=== PATIENT | female | born 1980 | race Caucasian/White ===

== ENCOUNTER 2019-07-26 04:39 | Emergency (ER) | payer BC ==
[~2019-07-26] VITALS: Ht 170.2 cm; Wt 78.0 kg
--- NOTE | 2019-07-26 04:46 | NUR ---
PT AMBULATORY W/ STABLE GAIT C/O INTERMITTENT CHEST PAIN RADIATING TOWARDS L SHOULDER FOR 2DAYS DESCRIBED BURNING PAIN DENIES NVD, FEVERS NOR CHILLS DENIES RECENT TRAVELS ABLE TO SPEAK CLEAR COMPLETE SENTENCES DENIES RESPIRATORY DISTRESS MONITORED ACCORDINGLY SIDERAILSX2 UP BED AT LOWEST POSITION MD AT BEDSIDE FOR HX AND PHYSICAL
[2019-07-26 05:08] LABS: BASOPHILS % (AUTO) 0.2 % (0.0-2.0); EOSINOPHILS # (AUTO) 0.5 K/uL (0.0-0.7); EOSINOPHILS % (AUTO) 4.8 % (0.0-7.0); HEMATOCRIT 40.5 % (31.2-41.9); HEMOGLOBIN 13.7 g/dL (10.9-14.3); LYMPHOCYTES # (AUTO) 2.9 K/uL (20.0-40.0); LYMPHOCYTES % (AUTO) 30.8 % (20.5-51.5); MEAN CORPUSCULAR HEMOGLOBIN 30.5 uug (24.7-32.8); MEAN CORPUSCULAR HGB CONC 34 g/dL (32.3-35.6); MEAN CORPUSCULAR VOLUME 90.4 fL (75.5-95.3); MONOCYTES # (AUTO) 0.6 K/uL (2.0-10.0); NEUTROPHILS # (AUTO) 5.5 K/uL (1.8-8.9); NEUTROPHILS % (AUTO) 58.2 % (38.5-71.5); PLATELET COUNT (AUTO) 192 K/uL (179-408); RED BLOOD CELL COUNT(AUTO) 4.48 MIL/uL (3.63-4.92); WHITE BLOOD COUNT (AUTO) 9.4 K/uL (3.8-11.8)
[2019-07-26] MEDS ORDERED: IV NORMAL SALINE 500 ML BAG IV ONE (05:15)
[2019-07-26 05:23] LABS: CREATININE 0.8 mg/dL (0.6-1.3); POTASSIUM 3.6 mmol/L (3.5-5.1)
[2019-07-26 05:32] LABS: BILIRUBIN,TOTAL 0.5 mg/dL (0.1-1.0)
[2019-07-26 05:33] LABS: BILIRUBIN,DIRECT 0.1 mg/dL (0.0-0.2)
[2019-07-26 05:34] LABS: TOTAL PROTEIN, SERUM 7.3 g/dL (6.4-8.2)
--- NOTE | 2019-07-26 05:35 | NUR ---
MD AT BEDSIDE FOR UPDATE Patient discharged to home in stable conditon. Written and verbal after care instructions given. Patient verbalizes understanding of instructions. AMBULATORY W/ STABLE GAIT ALL BELONGINGS W/ PT DC IV, DRESSED
[2019-07-26 05:43] VITALS: BP 119/65
== END 2019-07-26 05:44 | disposition home or self-care (01) ==
LOC: ER 04:39
DX: R07.89 Other chest pain (principal); F17.200 Nicotine dependence, unspecified, uncomplicated
CPT/HCPCS: 36415; 70030-TC; 71045; 85025; 85730; 93005; A4663; J7040